=== PATIENT | female | born 1960 | race Caucasian/White ===

== ENCOUNTER 2018-09-12 12:39 | Outpatient (CLI) | payer OTHER, SELFPAY ==
[2018-09-12] VITALS (7 sets, daily range): BP systolic 140–165; BP diastolic 69–98; PULSE 64–80; RESP 15–18; TEMP 37.2; O2SAT 100
--- NOTE | 2018-09-12 12:42 | DI.RAD.S_ITS ---
PROCEDURE: PAIN L/S FACET INJ/BLK 1ST JENNY COMPARISON: None. INDICATIONS: Lumbosacral spondylosis with facet arthropathy FINDINGS: 6 intraoperative fluoroscopy images demonstrate medial placement at L5-S1 for pain management. IMPRESSION: Fluoroscopy for pain management. Dictated by: Roula Spicer M.D. on 09/12/2018 at 17:09 Approved by: Roula Spicer M.D. on 09/12/2018 at 17:10
--- NOTE | 2018-09-12 12:42 | DI.RAD.S_ITS ---
PROCEDURE: XR LUMBAR SPINE MIN 4V INDICATIONS: Lumbosacral spondylosis TECHNIQUE: 3 views of the lumbar spine were acquired. COMPARISON: [facility], RG, MRI L-SPINE W/O CONTRAST, 04/04/2018, 16:45. [facility], MR, L-SPINE WITHOUT CONTRAST, 07/23/2009, 13:25. FINDINGS: Bones: 5 [id number] vertebrae are present. There is normal bony alignment. No vertebral body compression fractures. There is mild to moderate degenerative disc disease at T11-T12, T12-L1, and L5-S1. Moderate to severe facet arthropathy at L5-S1. No suspicious bony lesions. Soft tissues: Overlying bowel gas pattern is normal. No suspicious soft tissue calcifications. Oblique images: No pars defects. IMPRESSION: Degenerative disc and facet disease in the lower thoracic and lumbar spine. Dictated by: Roula Spicer M.D. on 09/12/2018 at 16:47 Approved by: Roula Spicer M.D. on 09/12/2018 at 16:49
--- NOTE | 2018-09-12 13:34 | PM.PROC.1 ---
Procedures Date/Time Date of procedure: 09/12/18 Time of procedure: 13:34 General Procedure description: PREOP DIAGNOSIS 1. FACET ARTHROPATHY, 2. AXIAL LBP, 3. MULTILEVEL DDD, POST OP DIAGNOSIS 1. FACET ARTHROPATHY, 2. AXIAL LBP, 3. MULTILEVEL DDD, PROCEDURES 1. FLUORSCOPICALLY GUIDED CONTRAST CONTROLLED FACET JOINT INJECTIONS BILATERAL L5/S1 PHYSICIAN: Arnoldo Swanson DO INDICATIONS: Rojas is referred by SAGAR Smith for treatment of Axial LBP FINDINGS Multilevel Facet Arthropathy with Clinically significant axial LBP DESCRIPTION OF PROCEDURE Fluoroscopically guided, contrast-controlled bilateral L5/S1 facet joint injections. Following denial of allergy and review of potential side effects and complications, including, but not necessarily limited to, infection, allergic reaction, local tissue breakdown, stroke, temporary or permanent nerve injury, paralysis, and possible , the patient indicated that the patient understood and agreed to proceed. An informed consent document was signed by the patient, witnessed by a nurse, and placed in the patient's chart. Additionally, other treatment options including medications, modalities, and physical therapy were reviewed with the patient. After review of previous anaesthesic history and IV conscious sedation the patient was deemed safe to proceed with todays procedure with IV conscious sedation as ASA class II designation. Safety time-out was performed to confirm patient ID, procedure to be performed and site of procedure. IV sedation was accomplished with a combination of 3mg of Versed administered by the RN after DO order, titrated to patient comfort during the course of the procedure while the patient remained responsive to all verbal commands In the prone position, following sterile prep and drape of the lumbar region, the posterior aspect of the L5/S1 facet joints were identified fluoroscopically. The skin was anesthetized via a 25-gauge 1.5-inch needle with 1% lidocaine solution into the corresponding facet joints. At this point, a 22-gauge 5-inch spinal needle was atraumatically introduced and advanced under fluoroscopic guidance into the corresponding facet joints. Following negative aspiration, injections of approximately 0.2-cc of Isovue 200 confirmed interarticular placement without vascular uptake. The identical procedure was then performed at the L5/S1 facet joints on the left. Radiological data, including multiple fluoroscopic views of the lumbosacral spine, reveal a spinal needle at the L5/S1 facet joints bilaterally. Subsequent views show flow of contrast material both superiorly and inferiorly within the joint space without vascular or intrathecal uptake. At this point, a total of 0.5 cc including a mixture of 0.25 cc Marcaine and 0.25 cc betamethasone was injected without complication into each of the corresponding facet joints. The patient tolerated the procedure well without signs or symptoms of complications prior to transfer to the recovery area continued monitoring without incident. The patient was then transferred to the recovery area where they were observed for an appropriate period of time after the injection. The patient reported a VAS score of 7 prior to the procedure and a post-procedure VAS of 0. Total Fluoroscopy Time: 21.0 seconds Total conscious sedation time: 24 min POST OP INSTRUCTIONS The patient was provided a Pain Log to continue to record their response to the target-specific procedure prior to follow-up visit with their referring physician. Additionally, specific post-injection care instructions and a contact number to our office were provided if concerns arise regarding possible complications associated with the procedure are suspected. Arnoldo Swanson DO Complications: none
[2018-09-12] MEDS: MIDAZOLAM 5 MG/5 ML VIAL IV (13:35)
[2018-09-12] MEDS: BETAMETHASONE 30 MG/5 ML MDV 12 MG INJ (13:44)
[2018-09-12] MEDS: BUPIVACAINE 0.5% (PF) VIAL 2 ML INJ (13:44)
[2018-09-12] MEDS: IOPAMIDOL 15 ML VIAL 3 ML INJ (13:44)
[2018-09-12] MEDS: LIDOCAINE 1% 20 ML INJ 10 ML INJ (13:45)
--- NOTE | 2018-09-12 13:54 | PC.NURSE ---
pt finished procedure and was able to get off table and into wheelchair with out dificulty. pt alert and vss. transferred care to Suzette RIVERA
--- NOTE | 2018-09-12 14:04 | PC.NURSE ---
ACCEPTED CARE OF PT IN POST OP AREA FROM [facility] IN STABLE CONDITION
== END 2018-09-12 14:45 | disposition home or self-care (01) ==
LOC: RAD 12:42
PROVIDERS: PCP Physician Assistant Medical; Visit Provider Physical Medicine & Rehabilitation
DX: M47.817 Spondylosis without myelopathy or radiculopathy, lumbosacral region (principal); M51.36 Other intervertebral disc degeneration, lumbar region; M51.37 Other intervertebral disc degeneration, lumbosacral region; M51.27 Other intervertebral disc displacement, lumbosacral region
CPT/HCPCS: 64493; 72110; 99152; J0702; J2250

== ENCOUNTER 2018-12-05 12:30 | Outpatient (CLI) | payer OTHER, SELFPAY ==
[2018-12-05] VITALS (9 sets, daily range): BP systolic 120–157; BP diastolic 72–102; PULSE 69–83; RESP 16–18; TEMP 36.9; O2SAT 97–100
--- NOTE | 2018-12-05 12:34 | DI.RAD.S_ITS ---
PROCEDURE: PAIN L/S TRANSFORAMINAL INJECT INDICATIONS: RADICULOPATHY FINDINGS: Fluoroscopic spot filming was performed to verify placement of spinal needles at the L5-S1 level(s), as labeled on the films. Appropriate location(s) of the needle tip(s) was confirmed by injection of iodinated contrast. IMPRESSION: Fluoroscopy fel pain management. Dictated by: Roula Spicer M.D. on 12/05/2018 at 13:50 Approved by: Roula Spicer M.D. on 12/05/2018 at 13:51
[2018-12-05] MEDS: MIDAZOLAM 5 MG/5 ML VIAL IV (13:20)
[2018-12-05] MEDS: IOPAMIDOL 15 ML VIAL 3 ML INJ (13:24)
[2018-12-05] MEDS: BUPIVACAINE 0.25% (PF) VIAL 2 ML INJ (13:24)
[2018-12-05] MEDS: DEXAMETHASONE 10 MG/ML VIAL 20 MG INJ (13:24)
[2018-12-05] MEDS: methylPREDNISolone acetate 80 MG/ML VIAL INJ (13:24)
--- NOTE | 2018-12-05 13:33 | P.PCN_ITS ---
Procedures Date/Time Date of procedure: 12/05/18 Time of procedure: 13:32 General Procedure description: PREOP DIAGNOSIS 1. FORMAINAL STENOSIS WITH LE SYMPTOMS POST OP DIAGNOSIS 1. FORMAINAL STENOSIS WITH LE SYMPTOMS PROCEDURES 1. FLUOROSCOPICALLY GUIDED CONTRAST CONTROLLED TRANSFORAMINAL EPIDURAL STEROID INJECTION - Left L5/S1 PHYSICIAN: Arnoldo Swanson DO INDICATIONS: Rojas is referred by LEVON Smith for treatment of HNP with Left LE Symptoms FINDINGS Foraminal Nerve Root Compression secondary to disc disease and facet hypertrophy DESCRIPTION OF PROCEDURE: Following denial of allergy and review of potential side effects and complications, including, but not necessarily limited to, infection, allergic reaction, local tissue breakdown, stroke, temporary or permanent nerve injury, paralysis, and possible , the patient indicated that the patient understood and agreed to proceed. An informed consent document was signed by the patient, witnessed by a nurse, and placed in the patient's chart. Additionally, other treatment options including medications, modalities, and physical therapy were reviewed with the patient. After review of previous anaesthesic history and IV conscious sedation the patient was deemed safe to proceed with todays procedure with IV conscious sedation as ASA class II designation. Safety time-out was performed to confirm patient ID, procedure to be performed and site of procedure. IV sedation was accomplished with a combination of 5mg was administered by the RN after DO order , titrated to patient comfort during the course of the procedure while the patient remained responsive to all verbal commands In the prone position following sterile prep and drape of the lumbar region, the Left L5/S1 posterior neuroforamen was identified fluoroscopically. The skin was anesthetized via a 25-gauge 1.5-inch needle with 1% lidocaine solution. At this point, a 25-gauge 3.5-inch spinal needle was atraumatically introduced and advanced under fluoroscopic guidance through the posterior Left L5/S1 neuroforamen to approximately the anterior aspect of the canal. Depth was confirmed on lateral view. Following negative aspiration, injection of approximately 1.5 cc of Isovue 200 under live fluoroscopy in the AP view confirmed excellent flow along the nerve root, into the epidural space without vascular or intrathecal uptake observed Radiological data, including multiple fluoroscopic views of the lumbosacral spine, reveal a spinal needle at the Left L5/S1 posterior neuroforamen. Subsequent views show flow of contrast material flowing superiorly and inferiorly along the nerve root confirming epidural flow. Subsequently, a test dose of 1.5 cc of 1% lidocaine solution was administered and patient was observed for two minutes for signs or symptoms of complications , including abdominal pain, shortness of breath, bilateral upper or lower extremity weakness, nausea and vomiting, prior to steroid injection. At this point, a total of 3 cc or 20 mg of dexamethasone and 80mg Depo Medrol was injected without incident. The procedure tolerated the procedure well without signs or symptoms of complications prior to transfer to the recovery area continued monitoring without incident. The patient was then transferred to the recovery area where they were observed for an appropriate time after the injection. The patient reported a VAS score of 7 prior to the procedure and a post-procedure VAS of 0. Total Fluoroscopy Time: 20.9 seconds Total Conscious Sedation Time: 24min POST OP INSTRUCTIONS The patient was provided a Pain Log to continue to record their response to the target-specific procedure prior to follow-up visit with their referring physician. Additionally, specific post-injection care instructions and a contact number to our office were provided if concerns arise regarding possible complications associated with the procedure are suspected. Arnoldo Swanson DO Complications: none
--- NOTE | 2018-12-05 13:42 | PC.NURSE ---
Returned from procedure via wheelchair, drowsy but alert cooperative, able to get from W/C to chair with 2 person assist. Left leg is a little numbed up. REsumed monitoring from Suzette RIVERA.
[2018-12-05] MEDS: HYDROCODONE/ACET 5/325 TABLET 1 TAB PO (14:30)
--- NOTE | 2018-12-05 14:34 | PC.NURSE ---
Pt continues to wait as I wanted Dr. Swanson to follow up with her before she was discharged and she needed a get off work note from him, now we are waiting again for rx and DR. Swanson wants to see her again before she is discharged.
--- NOTE | 2018-12-06 16:22 | PC.NURSE ---
Follow up call made to patient, unable to speak to her as her message machine answered. Left message checking in on her.
== END 2018-12-05 14:47 ==
LOC: RAD 12:31
PROVIDERS: PCP Physician Assistant Medical; Visit Provider Physical Medicine & Rehabilitation
DX: M48.07 Spinal stenosis, lumbosacral region (principal); M51.17 Intervertebral disc disorders with radiculopathy, lumbosacral region; M99.83 Other biomechanical lesions of lumbar region
CPT/HCPCS: 64483; 99152; J1040; J1100; J2250

== ENCOUNTER → 2021-08-17 11:21 | Outpatient (CLI) | payer OTHER, SELFPAY ==
[2021-08-17 17:20] LABS: COVID19 -Nasal RAPID Negative (Negative)
== END ==
PROVIDERS: PCP Physician Assistant Medical; Visit Provider Nurse Practitioner Family
DX: Z20.822 Contact with and (suspected) exposure to COVID-19 (principal); Z01.812 Encounter for preprocedural laboratory examination
CPT/HCPCS: 87635

== ENCOUNTER 2021-08-19 12:38 | Day surgery (SDC) | payer OTHER, SELFPAY ==
[2021-08-19] VITALS (7 sets, daily range): BP systolic 117–147; BP diastolic 73–87; PULSE 73–97; RESP 12–15; TEMP 36.4–37.4; O2SAT 99–100; BMI 33.5
--- NOTE | 2021-08-19 | PATH_ITS ---
[facility] Accession Number: [id number] . 01 Material submitted: . PART A: small bowel - SMALL BOWEL PART B: small bowel - SMALL BOWEL POLYPS PART C: colon - RANDOM . 01 Clinical history: . A: D/T MELISSA C: COLITIS . 02 Diagnosis: A. Small Bowel, Biopsies: Duodenal mucosa with no diagnostic abnormality. Negative for active inflammation, features of sprue, dysplasia, or malignancy. . B. 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 No evidence of Helicobacter on H/E stain. Negative for intestinal metaplasia. Negative for dysplasia and malignancy. . C. Random Colon, Biopsies: Colonic mucosa with no diagnostic abnormality. Negative for active, chronic, and microscopic colitis. Negative for dysplasia and malignancy. . [facility] 08/21/2021 1359 Local . 02 Electronically signed: . Brenda Lindsay MD, Pathologist NPI- [id number] . 01 Gross description: . Part A: SMALL BOWEL: Received in formalin are 3 fragment(s) of frances, soft tissue measuring 0.4 x 0.3 x 0.1 cm to 0.3 x 0.2 x 0.1 cm submitted entirely in 1 cassette(s) Part B: SMALL BOWEL POLYPS: Received in formalin are 3 fragment(s) of frances, soft tissue measuring 0.4 x 0.4 x 0.2 cm to 0.2 x 0.2 x 0.1 cm submitted entirely in 1 cassette(s) Part C: RANDOM: Received in formalin are 4 fragment(s) of frances, soft tissue measuring 0.8 x 0.2 x 0.1 cm to 0.3 x 0.2 x 0.1 cm submitted entirely in 1 cassette(s) /KIRSTIN 08/20/2021 0454 Local . 02 Pathologist provided ICD-10: D50.9 . 02 CPT . 398500, 998244, 782009 Performed at: 01 [facility] [address] [address], [place], [place] [id number] MD Donato Keenan MD Phone: [phone] Performed at: 02 [facility] [address] [place], [place] [id number] MD Brenda Lindsay MD Phone: [phone]
--- NOTE | 2021-08-19 13:22 | PM.HP.1 ---
History of Present Illness History of Present Illness Date Patient Seen: 08/19/21 Chief complaint: SDC Narrative: Iron-deficiency anemia with loose bowel movements and GE reflux Patient History Family & Social History Social History: household members family Tobacco & Substance use: Smoking Status Never smoker alcohol intake current alcohol intake frequency a few times a month Substance Use Type does not use Meds Home Medications and Allergies Home Medications Medication Instructions Recorded Confirmed Type calcium carbonate 600 mg calcium 600 mg PO BID tab 08/04/18 08/19/21 History (1,500 mg) tablet (Calcium) cholecalciferol (vitamin D3) 50 2,000 unit PO DAILY 08/04/18 08/19/21 History mcg (2,000 unit) capsule hydrochlorothiazide 25 mg tablet 25 mg PO DAILY 08/04/18 08/19/21 History lamotrigine PO 08/04/18 01/25/19 History lisinopril 20 mg tablet 20 mg PO DAILY 08/04/18 08/19/21 History multivitamin (Daily Multi-Vitamin) 1 tab PO DAILY 08/04/18 01/25/19 History pantoprazole 40 mg tablet,delayed 40 mg PO BID 08/04/18 08/19/21 History release vitamin B complex (B Complex 1) 1 tab PO DAILY 08/04/18 01/25/19 History tramadol 50 mg tablet 50 mg PO Q8H PRN #60 tab 12/05/18 08/19/21 Rx gabapentin 300 mg capsule 300 mg PO TID #90 cap 01/25/19 08/19/21 Rx Allergies Allergy/AdvReac Type Severity Reaction Status Date / Time No Known Drug Allergies Allergy Verified 08/19/21 13:09 Exam Vital Signs (past 8 hours): - 08/19/21 13:00 Temperature 99.3 F Pulse Rate 97 H Respiratory Rate 12 Blood Pressure 147/87 H Pulse Oximetry 100 Oxygen Delivery Method Room Air Narrative Exam Narrative: Oropharynx free of lesions Chest clear to auscultation percussion Cardiac exam reveals no S3 or murmur Assessment & Plan Assessment & Plan narrative: Iron deficiency anemia loose stools in GE reflux post fundoplication rule out esophagitis rule out peptic disease rule out microscopic colitis. Risks, benefits, alternatives have been explained. Time Spent With Patient Critical Care time: I spent a total of [] minutes of critical care time on this patient's care today; this time is exclusive of procedural time.
--- NOTE | 2021-08-19 13:24 | PM.OP.EC ---
Operative Date/Time/Diagnoses Date of procedure: 08/19/21 Pre-op diagnosis: See indication and findings Procedure & Clinicians Study performed: EGD and colonoscopy Indications: Iron deficiency anemia, loose stools, GE reflux Surgeon: Arnie Nesbitt Procedure Notes Procedure in detail: After informed consent was obtained the patient was placed in left lateral decubitus position. The video upper scope was placed into the oropharynx with the patient's help swallowed into the esophagus. The esophagus stomach duodenum were carefully examined. On withdrawal, retroflexed view the GE junction was performed. The scope was removed. The patient tolerated the procedure well. The patient was then turned to the colonoscope substituted. This was easily passed to the cecum. Preparation was good. On slow withdrawal mucosa was carefully examined. The scope was removed. The patient otherwise seems. Blood loss none Complications none Sedation mac Findings EGD 1. Normal esophagus 2. Stomach with intact fundoplication. 3. Extensive medium to large size polyps in the body of the stomach. Biopsies taken to rule out hyperplasia or adenoma 4. Normal distal stomach 5. Normal duodenal bulb and sweep biopsies taken to rule out celiac Colonoscopy 1. Normal colonoscopy to cecum. No polyps seen. Biopsies taken to rule out microscopic colitis Rojas should follow-up with me for telehealth visit to go over these several issues. Recheck CBC should be performed before she returns.
== END 2021-08-19 14:56 | disposition home or self-care (01) ==
PROVIDERS: PCP Physician Assistant Medical; Referring Provider Internal Medicine Gastroenterology; Visit Provider Internal Medicine Gastroenterology
PROC: 0DJ08ZZ Inspection of Upper Intestinal Tract, Via Natural or Artificial Opening Endoscopic (ICD-10-PCS; CPT 43235; principal; 2021-08-19 14:00)
PROC: 0DJD8ZZ Inspection of Lower Intestinal Tract, Via Natural or Artificial Opening Endoscopic (ICD-10-PCS; CPT 45378; 2021-08-19 14:00)
DX: D50.9 Iron deficiency anemia, unspecified (principal); K21.9 Gastro-esophageal reflux disease without esophagitis; K31.7 Polyp of stomach and duodenum; R19.4 Change in bowel habit; I10 Essential (primary) hypertension; G47.33 Obstructive sleep apnea (adult) (pediatric)
CPT/HCPCS: 45380; 43239; J2704

== ENCOUNTER 2024-12-10 08:43 | Day surgery (SDC) | payer OTHER, SELFPAY ==
--- NOTE | 2024-12-10 | PATH_ITS ---
[facility] Accession Number: [id number] No. of containers..02 Tissue . 01 Material submitted: . PART A: gastrointestinal site - GASTRIC PART B: esophagus - ESOPHAGEAL . 01 Clinical history: . A: R/O ADENOMA B: R/O DC'S . 01 Diagnosis: Part A: GASTRIC: Fundic gland polyps. No Helicobacter organisms identified. No intestinal metaplasia, dysplasia, or malignancy identified. . Part B: ESOPHAGEAL: Squamocolumnar junctional mucosa with goblet cell (Dc's) metaplasia. No dysplasia identified. . 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 Correlation with the endoscopic appearance is recommended for further evaluation. [facility] 12/13/2024 1618 Local . 01 Electronically signed: . Donato Keenan MD, Pathologist NPI- [id number] . 01 Gross description: . A. Received in formalin with two patient identifiers and gastric biopsy, are two frances soft tissue fragments, 0.3-0.5 cm in greatest dimension, submitted in A1. . B. Received in formalin with two patient identifiers and esophageal biopsy, are two frances soft tissue fragments, both measuring 0.4 cm in greatest dimension, submitted in B1. ([id number]) /MRV 12/13/2024 1618 Local . 01 Microscopic: . Part A: GASTRIC: An immunohistochemical stain was performed to evaluate for Helicobacter organisms and is negative. The control stains appropriately. * This test was developed and the performance characteristics were validated by [facility]. It has not been cleared or approved by the Food and Drug Administration. . 01 Pathologist provided ICD-10: K22.70, K31.7 . 01 CPT . 205337, 847298, P87123 Specimen Comment: A courtesy copy of this report has been sent to [phone] Performed at: [address] [facility] [address], [place], [place] [id number] MD Donato Keenan MD Phone: [phone]
[2024-12-10 09:13] VITALS: BP 150/86; PULSE 61; RESP 16; TEMP 36.5; O2SAT 98
[2024-12-10] MEDS: SODIUM CHLORIDE 0.9% 1,000 ML 84 ML IV (09:25)
--- NOTE | 2024-12-10 09:31 | PM.HP.1 ---
History of Present Illness History of Present Illness Date Patient Seen: 12/10/24 Chief complaint: SDC Narrative: Worsening GE reflux despite adequate medications PFSH Social History household members: family Smoking Status: Never smoker alcohol intake: current Meds Home Medications and Allergies Home Medications Medication Instructions Recorded Confirmed Type calcium carbonate (Calcium 600) 600 mg PO BID 08/04/18 08/19/21 History cholecalciferol (vitamin D3) 50 2,000 unit PO DAILY 08/04/18 08/19/21 History mcg (2,000 unit) capsule hydrochlorothiazide 25 mg tablet 25 mg PO DAILY 08/04/18 08/19/21 History lamotrigine PO 08/04/18 01/25/19 History lisinopril 20 mg tablet 20 mg PO DAILY 08/04/18 08/19/21 History multivitamin (Daily Multi-Vitamin 1 tab PO DAILY 08/04/18 01/25/19 History tablet) pantoprazole 40 mg tablet,delayed 40 mg PO BID 08/04/18 08/19/21 History release vitamin B complex (B Complex 1 1 tab PO DAILY 08/04/18 01/25/19 History tablet) tramadol 50 mg tablet 50 mg PO Q8H PRN pain #60 tabs 12/05/18 08/19/21 Rx gabapentin 300 mg capsule 300 mg PO TID #90 caps 01/25/19 08/19/21 Rx Allergies Allergy/AdvReac Type Severity Reaction Status Date / Time No Known Drug Allergies Allergy Verified 08/19/21 13:09 Exam Vital Signs (past 8 hours): - 12/10/24 09:13 Temperature 97.7 F Pulse Rate 61 Respiratory Rate 16 Blood Pressure 150/86 H Pulse Oximetry 98 Oxygen Delivery Method Room Air Oxygen Delivery Method Room Air Narrative Exam Narrative: Oropharynx free of lesions Chest clear to auscultation percussion Cardiac exam reveals no S3 or murmur Assessment & Plan Assessment & Plan narrative: Worsening GE reflux rule out worsening esophagitis particularly in a woman over 60 years of age. Risks, benefits, alternatives have been explained. Time-Based Coding :: [TOTAL MINUTES] spent with patient and on the chart (including review of chart, obtaining history, exam, reviewing outside data, placing orders, documenting exam and treatment plan, and counseling patient) on [DATE].
--- NOTE | 2024-12-10 09:32 | PM.OP.EGD ---
Operative Date/Time/Diagnoses Date of procedure: 12/10/24 Pre-op diagnosis: See indication and findings Procedure & Clinicians Study performed: EGD Indications: Worsening GE reflux despite adequate medications Surgeon: Arnie Nesbitt Procedure Notes Procedure in detail: After informed consent was obtained the patient was placed in left lateral decubitus position. The video upper scope was placed into the oropharynx and with the patient's help swallowed into the esophagus. The esophagus stomach and duodenal were carefully examined. On withdrawal, retroflexed view the GE junction was performed. The scope was removed. The patient tolerated procedure well. Blood loss none Complications none Sedation Mac Findings 1. Patch of abnormal tissue approximately half the circumference 1 cm long between 33 and 34 cm. Biopsies taken to rule out Barretts Two. Normal squamocolumnar junction otherwise. No hand of inflammatory disease Three. Multiple medium to large polyps in the stomach primarily in the body biopsies taken to rule out intestinal metaplasia 4. Normal duodenal bulb and sweep We will be in touch with Jose Daniel regarding your biopsies.
[2024-12-10 10:16] VITALS: BP 133/81; PULSE 71; RESP 13; TEMP 36.6; O2SAT 93
[2024-12-10 10:21] VITALS: BP 141/86; PULSE 68; PULSE 71; RESP 18; RESP 20; O2SAT 93; O2SAT 94
[2024-12-10 10:26] VITALS: BP 146/88; PULSE 59; RESP 19; O2SAT 98
[2024-12-10 10:32] VITALS: BP 145/91; PULSE 61; RESP 15; TEMP 36.6; O2SAT 97
== END 2024-12-10 10:55 | disposition home or self-care (01) ==
PROVIDERS: PCP Physician Assistant Medical; Referring Provider Internal Medicine Gastroenterology; Visit Provider Internal Medicine Gastroenterology
PROC: 0DJ08ZZ Inspection of Upper Intestinal Tract, Via Natural or Artificial Opening Endoscopic (ICD-10-PCS; CPT 43239; principal; 2024-12-10 10:00)
DX: K22.70 Barrett's esophagus without dysplasia (principal); K31.7 Polyp of stomach and duodenum; K21.9 Gastro-esophageal reflux disease without esophagitis; I10 Essential (primary) hypertension; E66.9 Obesity, unspecified
CPT/HCPCS: 43239; J2704